=== PATIENT | female | born 1985 | race Caucasian/White ===

== ENCOUNTER → 2021-09-03 15:32 | Outpatient (BNVA) | payer OTHER, SELFPAY | PROVIDERS: PCP Internal Medicine; Visit Provider Physician Assistant ==

== ENCOUNTER → 2021-09-16 09:31 | Outpatient (BNVA) | payer OTHER, SELFPAY | PROVIDERS: PCP Internal Medicine; Visit Provider Physician Assistant Surgical | DX: E66.01 Morbid (severe) obesity due to excess calories (principal); Z68.41 Body mass index [BMI] 40.0-44.9, adult | CPT/HCPCS: 99202 ==

== ENCOUNTER → 2021-09-22 13:30 | Outpatient (BNVA) | payer OTHER, SELFPAY | PROVIDERS: PCP Internal Medicine; Visit Provider Counselor Mental Health | DX: F50.81 Binge eating disorder (principal); F90.2 Attention-deficit hyperactivity disorder, combined type | CPT/HCPCS: 90791 ==

== ENCOUNTER 2021-10-02 14:23 | Outpatient (REF) | payer OTHER, SELFPAY ==
--- NOTE | ~2021-10-02 | XR_ITS ---
EXAMINATION: XR CHEST CLINICAL INFORMATION: Obesity COMPARISON: None TECHNIQUE: 2 views of the chest were obtained. FINDINGS: No significant abnormality is noted involving the heart, lungs, mediastinum, bony thorax or soft tissues. XR/XR chest 2V IMPRESSION: Unremarkable examination.
--- NOTE | 2021-10-02 14:31 | ECG_ITS ---
Test Reason : MORBID OBESITY Blood Pressure : / mmHG Vent. Rate : 081 BPM Atrial Rate : 081 BPM P-R Int : 148 ms QRS Dur : 098 ms QT Int : 382 ms P-R-T Axes : 052 063 044 degrees QTc Int : 443 ms Normal sinus rhythm Normal ECG No previous ECGs available Referred By: Antonio Acosta Electronically Signed By:NATHANIEL HERRERA
[2021-10-02 14:56] LABS: MANUAL DIFF FLAG NO
[2021-10-02 15:06] LABS: Basophils Absolute Auto 0.1 X10*3/uL (0.0-0.2); Basophils Percent Auto 0.7 % (0-2); Eosinophils Absolute Auto 0.5 X10*3/uL (0.0-0.4); Eosinophils Percent Auto 5.1 % (0-4); Hematocrit 39.6 % (37.0-47.0); Imm Gran Abs Auto 0.03 X10*3/uL (0.00-0.03); Imm Gran Pct Auto 0.3 % (0.0-0.4); Lymphocytes Absolute Auto 2.2 X10*3/uL (1.2-4.9); Lymphocytes Percent Auto 23.9 % (20-40); Mean Corpuscular HGB Conc 32.8 g/dl (31.0-35.0); Mean Corpuscular Volume 88.4 fL (80.0-98.0); Mean Platelet Volume 10.3 fL (9.4-12.3); Monocytes Absolute Auto 0.6 X10*3/uL (0.1-1.2); Platelet Count 301 X10*3/uL (160-400); Red Blood Count 4.48 X10*6/uL (4.20-5.50); Red Cell Distribution Width 12.7 % (11.0-16.0); White Blood Count 9.4 X10*3/uL (4.8-10.8)
[2021-10-02 15:13] LABS: Estimated Average Glucose 82 mg/dL; Hemoglobin A1c % 4.5 %
[2021-10-02 15:37] LABS: Alanine Aminotransferase 11 U/L (0-31); Albumin Level 4.1 g/dL (3.5-5.0); Alkaline Phosphatase 72 U/L (39-117); Anion Gap 13 (12-20); Aspartate Amino Transferase 9 U/L (5-31); Bilirubin Total 0.5 mg/dL (0.0-1.0); Blood Urea Nitrogen 11 mg/dL (9-16); C Reactive Protein 0.45 mg/dL (< or = 0.50); Calcium 9.5 mg/dL (8.4-10.2); Carbon Dioxide 22 mmol/L (22-29); Chloride 107 mmol/L (96-108); Cholesterol 158 mg/dL; Estimated Glomerular Filt Rate > 60; Glucose Random 104 mg/dL (60-115); HDL Cholesterol 36 mg/dL; Iron 54 mcg/dL (30-160); LDL Cholesterol Calculated 75 mg/dl; Potassium 3.9 mmol/L (3.3-5.1); Sodium 138 mmol/L (135-145); Total Protein 6.8 g/dL (6.5-8.0); Triglycerides 236 mg/dL
[2021-10-02 15:53] LABS: Ferritin 62 ng/mL (10-122); TSH reflex Free T4 1.25 uIU/mL (0.32-4.0); Vitamin D 25-OH Total 29.8 ng/mL (>30)
[2021-10-02 16:03] LABS: Percent Iron Saturation 17 % (15-50); Total Iron Binding Capacity 315 mcg/dL (228-428); Unsaturated Iron Binding 261 ug/dL
[2021-10-02 16:10] LABS: Folate > 20.0 ng/mL (> or = 4.0); Vitamin B12 675 pg/mL (200-900)
[2021-10-05 16:12] LABS: Calcium (PTHI) 9.5 mg/dL (8.6-10.2); PTHI 26 pg/mL (16-77)
[2021-10-08 09:36] LABS: Zinc 81 mcg/dL (60-130)
[2021-10-08 19:41] LABS: Vitamin A 49 mcg/dL (38-98); Vitamin B1 27 nmol/L (8-30)
== END 2021-10-02 14:24 | disposition home or self-care (01) ==
LOC: HO.XRAY 14:23
PROVIDERS: Visit Provider Physician Assistant Surgical
DX: E66.01 Morbid (severe) obesity due to excess calories (principal)
CPT/HCPCS: 36415; 71046; 80053; 80061; 82306; 82607; 82728; 82746; 83036; 83540; 83970; 84425; 84443; 84590; 84630; 85025; 86140; 93005

== ENCOUNTER → 2021-10-06 09:27 | Outpatient (BNVA) | payer OTHER, SELFPAY | PROVIDERS: PCP Internal Medicine; Visit Provider Physician Assistant Surgical | DX: E66.9 Obesity, unspecified (principal); Z68.39 Body mass index [BMI] 39.0-39.9, adult | CPT/HCPCS: 99212 ==

== ENCOUNTER 2021-10-07 11:38 | Day surgery (SDC) | payer OTHER, SELFPAY ==
--- NOTE | 2021-10-06 10:46 | HO.ANESPROP2 ---
Documented by User: Nika Brewer NP 10/06/21 10:47 HPI - Anesthesia Eval Consult details Narrative: 36yo F for Upper Endoscopy s/p gastric sleeve 2014 [facility] Active Problems Active Problems: All Active Problems (Updated 10/06/21 @ 10:04 by GISELA Storey) Obesity (Acute) Attention deficit hyperactivity disorder (ADHD), combined type (Acute) Binge eating disorder (Acute) Morbid obesity (Acute) HTN (hypertension) (Acute) EVA (obstructive sleep apnea) (Acute) GERD (gastroesophageal reflux disease) (Acute) Family History Family History Mother No problems noted. Father Cancer Sister Diabetes Hypertension Sleep apnea Brother No problems noted. Sister No problems noted. Daughter No problems noted. Daughter No problems noted. Son No problems noted. Surgical History Surgical History History of back surgery History of sleeve gastrectomy Hx of cholecystectomy Social History Social History Alcohol intake: current Alcohol intake frequency: holidays/special occasions only Patient Tobacco Use Status: Current everyday Tobacco user Cigarettes Per Day: 2 Advance Directives: No Advance Directives Information Provided: Yes Meds Allergies Allergy/AdvReac Type Severity Reaction Status Date / Time No Known Allergies Allergy Verified 10/06/21 09:30 Home Medications Medication Instructions Recorded Confirmed Last Taken Type dextroamphetamine-amphetamine ER 15 mg PO DAILY 09/03/21 10/06/21 Unknown History 15 mg 24hr capsule,extend release (Adderall XR) multivitamin 1 tab PO DAILY 09/03/21 10/06/21 Unknown History omeprazole 40 mg capsule,delayed 40 mg PO BID 09/03/21 10/06/21 Unknown History release Exam Exam Date and Time: October 06, 2021 1046 Pertinent Lab Results Pertinent Lab Results: Laboratory Tests 10/02/21 10/02/21 14:54 14:54 WBC 9.4 Hgb 13.0 Hct 39.6 Plt Count 301 Sodium 138 Potassium 3.9 Chloride 107 Carbon Dioxide 22 BUN 11 Creatinine 0.74 Narrative Narrative: EKG Vent. Rate : 081 BPM ? ? Atrial Rate : 081 BPM ?? P-R Int : 148 ms? QRS Dur : 098 ms ? ? QT Int : 382 ms ? ? ? P-R-T Axes : 052 063 044 degrees ?? QTc Int : 443 ms ? Normal sinus rhythm Normal ECG No previous ECGs available Assessment and Plan Assessment Anesthesia Assessment: Chart Reviewed Documented by User: Wai Patel MD 10/07/21 11:47 PMF Family History Family History Mother No problems noted. Father Cancer Sister Diabetes Hypertension Sleep apnea Brother No problems noted. Sister No problems noted. Daughter No problems noted. Daughter No problems noted. Son No problems noted. Family history of problems with anesthesia: No Surgical History Surgical History History of back surgery History of sleeve gastrectomy Hx of cholecystectomy History of Problems with Anesthesia: No Social History Social History Alcohol intake: current Alcohol intake frequency: holidays/special occasions only Patient Tobacco Use Status: Current everyday Tobacco user Cigarettes Per Day: 2 Advance Directives: No Advance Directives Information Provided: Yes Meds Allergies Allergy/AdvReac Type Severity Reaction Status Date / Time No Known Allergies Allergy Verified 10/06/21 09:30 Home Medications Medication Instructions Recorded Confirmed Last Taken Type dextroamphetamine-amphetamine ER 15 mg PO DAILY 09/03/21 10/06/21 Unknown History 15 mg 24hr capsule,extend release (Adderall XR) multivitamin 1 tab PO DAILY 09/03/21 10/06/21 Unknown History omeprazole 40 mg capsule,delayed 40 mg PO BID 09/03/21 10/06/21 Unknown History release Exam Airway Mallampati Class: II TM Dist: >3cm Neck ROM: Full Loose/Missing/Broken Teeth: No Heart: [id number] Lungs: cta b/l Assessment and Plan Assessment Anesthesia Assessment: Anesthesia Plan Discussed Final Anesthetic Review Family History of Problems with Anesthesia: No History of Problems with Anesthesia: No NPO: Yes ASA Class: III Final Preanesthetic Review: No Changes in Pt Med Stat, Meds/Allgs Chart Reviewed, Consent Obtained/Reviewed and Anes Risks/Benef Reviewed Patient Risk: Intermediate Procedure Risk: Intermediate Assessment/Block/Sedation in SS: Assess/Block/Sedation-SS Anesthetic Plan Anesthetic Plan: MAC: and Agree w/ Assess. and Plan Disposition: Standard PACU
[2021-10-07 11:46] VITALS: BMI 38.3
--- NOTE | 2021-10-07 11:56 | P.HPSUR_ITS ---
Pre-Procedural Eval Section A Date of Service: 10/07/21 The patient is an INPATIENT: No The History & Physical has been completed within 30 days and I have reviewed it.: Yes Section B Chief Complaint: reflux disease Relevant Family History (Specify if Yes): No Relevant Social History: None Present Medications: None Medical History: No relevant PMH History of Previous Operations: Relevant previous surgery/procedure and date(s) (Sleeve gastrectomy) Allergies: Allergies Allergy/AdvReac Type Severity Reaction Status Date / Time No Known Allergies Allergy Verified 10/06/21 09:30 Review of Systems Sugical H&P ROS: Negative: Constitution, Cardiovascular, Respiratory, Neurological, Psychiatric, Hem-Onc, Allergic/Immunologic, Gastrointestinal, Genitourinary, Musculoskeletal, Integumentary, Endocrine and Eyes/ Ears/Nose/Throat Exam Surgical H&P Exam: Normal: HEENT, Normal: Heart, Normal: Lungs, Normal: Extremities, Normal: Abdomen, Normal: Skin and Normal: Neurological Plan Diagnosis/Plan: Unchanged (EGD to assess the sleeve gastrectomy anatomy. Risks of bleeding and perforation were discussed) I have reviewed the history and physical and performed a pertinent physical examination on my patient. No changes have occurred unless specified.
[2021-10-07 11:57] LABS: UPreg QC Valid YES; Urine Pregnancy NEGATIVE (NEGATIVE)
[2021-10-07 12:01] VITALS: BP 121/75; PULSE 80; RESP 16; TEMP 36.4; O2SAT 99
[2021-10-07] MEDS: Lactated Ringers 1,000 ML 100 ML IVCONT (12:02)
--- NOTE | 2021-10-07 12:05 | PM.OP ---
Brief Operative Note Date of Service: 10/07/21 Pre-op diagnosis: Severe GERD, s/p sleeve gastrectomy Post-op diagnosis: same Procedure: PROCEDURE DATE: 10/07/2021 PREOPERATIVE DIAGNOSIS: GERD, s/p sleeve gastrectomy POSTOPERATIVE DIAGNOSIS: ?Same as above. 1) small hiatal hernia, 2) distal gastritis, 3) incomplete fundal resection PROCEDURE: [id number] with biopsies Surgeon: ?Vince Christine M.D.. Ph.D. Puttying And Calking Supervisor: None ? Anesthesia: IV sedation Estimated blood loss: ?Minimal FINDINGS AND PROCEDURE: ? OPERATIVE INDICATIONS: ?The patient is a 36 year old female known to me who underwent a laparoscopic sleeve gastrectomy elsewhere. The patient had remarkable weight loss so far and had a completely uneventful recovery.? The patient was doing very well but has recently been complaining of GERD. Based on this information I recommended an upper endoscopy to evaluate the patient's symptoms. Risks and complications of the surgery were discussed with the patient in advance particularly the possibility of perforation or bleeding that may require surgical intervention. The patient understood the risks and was in agreement with the plan. ? PROCEDURE: After informed consent was obtained by the patient, the patient was ?transferred to the Operating Room and was placed in the supine position.? After successful induction of IV sedation, a mouth block was inserted and the patient was placed in the left lateral decubitus position. An upper endoscopy was performed next, the oropharynx and esophagus appeared within the normal limits. There was a 3cm hiatal hernia. The z-line was slighlty irregular. Two biopsies were obtained from the distal esohagus 2-3 cm proximal to the GE junction and two additional biopsies from the GE junction. The sleeve was entered. There was significant redundancy in the proximal sleeve suggesting incomplete fundal resection at the time of sleeve gastrectomy. The more distal sleeve was of normal caliber but the sleeve was short as well in length. There was mild gastritis at distal antrum. There was no stricture or ulcer. Biopsies were obtained from the proximal sleeve as well as the distal antrum. No significant bleeding was noted from any of the biopsy sites. The scope was then advanced into the duodenum which appeared to be normal as well. At that point the duodenum ?and the sleeve were decompressed and the scope was withdrawn from the patient's mouth. The patient extubated and was transferred in stable condition to the Recovery Room for further care. I was present and performed all steps of the procedure. There were no residents to assist with this case. Vince Christine M.D., Ph.D. Surgeon: Eyal Christine MD Anesthesia: MAC Was an Puttying And Calking Supervisor used for this Procedure?: No Estimated blood loss (mL): 0 IV fluids (mL): 300 Urine output (mL): 0 Pathology: other (GEJ x2, distal esophagus x2, proximal sleeve x1, prepylorus x1) Condition: stable Disposition: PACU
[2021-10-07 12:32] VITALS: BP 113/71; PULSE 101; RESP 12; TEMP 36.2; O2SAT 98
[2021-10-07 12:37] VITALS: BP 141/78; PULSE 91; RESP 14; O2SAT 100
[2021-10-07 12:42] VITALS: BP 141/78; PULSE 84; RESP 16; O2SAT 100
[2021-10-07 12:54] VITALS: BP 121/76; PULSE 92; RESP 16; TEMP 36.2; O2SAT 100
== END 2021-10-07 13:21 ==
LOC: HO.SSS 11:39
PROVIDERS: Nurse Practitioner; PCP Internal Medicine; Visit Provider Surgery
PROC: 0DJ08ZZ Inspection of Upper Intestinal Tract, Via Natural or Artificial Opening Endoscopic (ICD-10-PCS; CPT 43235; principal; 2021-10-07 12:40)
DX: K21.9 Gastro-esophageal reflux disease without esophagitis (principal); Z98.84 Bariatric surgery status; Z90.3 Acquired absence of stomach [part of]; K29.50 Unspecified chronic gastritis without bleeding; K44.9 Diaphragmatic hernia without obstruction or gangrene; E66.01 Morbid (severe) obesity due to excess calories; Z68.41 Body mass index [BMI] 40.0-44.9, adult; Z90.49 Acquired absence of other specified parts of digestive tract; Z98.890 Other specified postprocedural states; F17.210 Nicotine dependence, cigarettes, uncomplicated
CPT/HCPCS: 43239; 81025; 88305; 88342; J2250

== ENCOUNTER → 2021-10-21 08:12 | Outpatient (BNVA) | payer OTHER, SELFPAY | PROVIDERS: PCP Internal Medicine; Visit Provider Dietitian, Registered | DX: E66.9 Obesity, unspecified (principal); Z68.37 Body mass index [BMI] 37.0-37.9, adult | CPT/HCPCS: 97802 ==

== ENCOUNTER 2021-10-26 08:39 | Outpatient (REF) | payer OTHER, SELFPAY ==
--- NOTE | ~2021-10-26 | US_ITS ---
EXAMINATION: US COMPLETE ABDOMEN WITH LIVER ELASTOGRAPHY CLINICAL INFORMATION: Obesity COMPARISON: None. TECHNIQUE: Real-time imaging of the abdominal viscera. Noninvasive ultrasound liver fibrosis assessment is performed using Zeke ElastPQ point quantification shear wave elastography (2D-SWE) with a C5-2 MHz transducer. Multiple elastography samples are obtained. FINDINGS: PANCREAS: The head and body the pancreas is normal-appearing. The tail is not well visualized due to bowel gas. ABDOMINAL AORTA: The proximal, middle, and distal aortic segments are normal in caliber. INFERIOR VENA CAVA: Visualized portions are normal. LIVER: Normal. The liver demonstrates normal size, contour and echogenicity. No focal lesion or intrahepatic biliary duct dilatation. The right lobe measures 15 cm in length. The left lobe measures 8 cm in length. Portal flow is normal/hepatopedal Shear wave liver elastography median stiffness is 1.4 m/s (reference: normal median stiffness is 1.3 m/s or less). IQR/median stiffness to assess sampling precision is 0.1 (reference: good quality data set is IQR/median stiffness of 0.15 or less). GALLBLADDER: Surgically removed COMMON BILE DUCT: Normal in caliber measuring 0.3 cm in diameter. RIGHT KIDNEY: Normal. No hydronephrosis. No renal calculi or focal parenchymal lesions. The kidney measures 12 cm in maximum dimension. LEFT KIDNEY: Normal. No hydronephrosis. No renal calculi or focal parenchymal lesions. The kidney measures 12 cm in maximum dimension. SPLEEN: Slightly enlarged The spleen measures 14 cm in maximum dimension. FREE FLUID: None. US/US abdomen comp w elastography IMPRESSION: 1. Impression: Normal-appearing liver. Post cholecystectomy. Slightly enlarged spleen. Limited visualization of the pancreas. 2. Liver elastography: Adequate liver sampling. In the absence of other known clinical signs, rules out compensated advanced chronic liver disease. REFERENCE: Society of Radiologists in Ultrasound Liver Stiffness Thresholds (2020): LIVER STIFFNESS THRESHOLDS: *Liver Stiffness equal or less than 1.3 m/s: High probability of being normal. *Liver Stiffness less than 1.7 m/s: In the absence of other known clinical signs, rules out compensated advanced chronic liver disease. *Liver Stiffness 1.7-2.1 m/s: Suggestive of compensated advanced chronic liver disease but need further test for confirmation. *Liver Stiffness over 2.1 m/s: Rules in compensated advanced chronic liver disease. *Liver Stiffness over 2.4 m/s: Suggestive of clinically significant portal hypertension. QUALITY OF DATA SET: *IQR/Median value equal or less than 0.15 implies a quality data set. *IQR/Median value over 0.15 implies a poor quality data set. SIGNIFICANT CHANGE FROM PRIOR EXAM: Significant change if liver stiffness measurement is 10% or greater from prior exam. OTHER CONSIDERATIONS: The stage of liver fibrosis may be overestimated in the setting of acute hepatitis, liver inflammation, elevated liver function tests, hepatic vascular congestion, obstructive cholestasis, non-fasting state, and infiltrative diseases such as amyloidosis and lymphoma. In some patients with NAFLD, the liver stiffness thresholds for compensated advanced chronic liver disease may be lower. In causes other than viral hepatitis and NAFLD, liver stiffness thresholds are not well established.
--- NOTE | ~2021-10-26 | FL_ITS ---
EXAMINATION: XR FLUOROSCOPY UPPER GI WITH AIR CLINICAL INFORMATION: Morbid/severe obesity due to excess calories. Previous gastric sleeve surgery. COMPARISON: None. TECHNIQUE: Routine upper GI air-contrast study was performed. FINDINGS: Following oral administration of thick barium and effervescent granules, there is normal propagation of bolus from the oral cavity through the pharynx and esophagus and into the stomach without any evidence of obstruction, narrowing or stricture. Following placing patient supine and prone lying, there is evidence of previous gastric sleeve surgery. The course, caliber and peristalsis of the stomach and the duodenum are normal. The mucosal pattern of the stomach and the duodenum is normal. There is a large gastroesophageal reflux without hiatal hernia. There is evidence of previous cholecystectomy. FLUOROSCOPY TIME: 1.2 minutes DOSE AREA PRODUCT: 25.64 uGy-m2 (microgray-meter squared) FL/FL upper GI w air IMPRESSION: Large gastroesophageal reflux without hiatal hernia. Evidence of previous gastric sleeve surgery changes.
== END 2021-10-26 08:40 | disposition home or self-care (01) ==
LOC: HO.US 08:39
PROVIDERS: PCP Internal Medicine; Visit Provider Physician Assistant Surgical
DX: Z01.818 Encounter for other preprocedural examination (principal); E66.01 Morbid (severe) obesity due to excess calories
CPT/HCPCS: 74246; 76705; 76981

== ENCOUNTER → 2021-11-05 10:23 | Outpatient (BNVA) | payer OTHER, SELFPAY | PROVIDERS: PCP Internal Medicine; Visit Provider Surgery | DX: Z13.89 Encounter for screening for other disorder (principal) ==

== ENCOUNTER → 2021-11-25 10:34 | Outpatient (BNVA) | payer OTHER, SELFPAY | PROVIDERS: PCP Internal Medicine; Visit Provider Surgery | DX: Z13.89 Encounter for screening for other disorder (principal) ==

== ENCOUNTER → 2021-11-27 12:53 | Outpatient (BNVA) | payer OTHER, SELFPAY | PROVIDERS: PCP Internal Medicine; Visit Provider Surgery | DX: Z13.89 Encounter for screening for other disorder (principal) ==

== ENCOUNTER 2021-12-02 06:03 | Inpatient (IN) | payer OTHER, SELFPAY ==
[2021-11-24 13:07] VITALS: BMI 35.9
[2021-11-27 12:51] LABS: MANUAL DIFF FLAG NO
[2021-11-27 13:05] LABS: Basophils Absolute Auto 0.1 X10*3/uL (0.0-0.2); Basophils Percent Auto 0.8 % (0-2); Eosinophils Absolute Auto 0.2 X10*3/uL (0.0-0.4); Eosinophils Percent Auto 2.1 % (0-4); Hematocrit 40.4 % (37.0-47.0); Hemoglobin 13.3 g/dl (12.0-16.0); Imm Gran Abs Auto 0.03 X10*3/uL (0.00-0.03); Imm Gran Pct Auto 0.3 % (0.0-0.4); Lymphocytes Absolute Auto 2.2 X10*3/uL (1.2-4.9); Lymphocytes Percent Auto 22.5 % (20-40); Mean Corpuscular HGB Conc 32.9 g/dl (31.0-35.0); Mean Corpuscular Hemoglobin 29.5 pg (27.0-33.0); Mean Corpuscular Volume 89.6 fL (80.0-98.0); Mean Platelet Volume 10.5 fL (9.4-12.3); Monocytes Absolute Auto 0.6 X10*3/uL (0.1-1.2); Monocytes Percent Auto 5.9 % (2-11); Neutrophils Absolute Auto 6.6 x10*3/uL (2.0-8.3); Neutrophils Percent Auto 68.4 % (45-73); Platelet Count 300 X10*3/uL (160-400); Red Blood Count 4.51 X10*6/uL (4.20-5.50); Red Cell Distribution Width 12.6 % (11.0-16.0); White Blood Count 9.7 X10*3/uL (4.8-10.8)
[2021-11-27 13:10] LABS: INTERNATIONAL NORM RATIO 1.1 (0.9-1.1); Prothrombin Time 12.7 SEC (9.9-13.0)
[2021-11-27 13:12] LABS: Partial Thromboplastin Time 37.2 SEC (24.1-38.0)
[2021-11-27 13:17] LABS: Estimated Average Glucose 85 mg/dL; Hemoglobin A1c % 4.6 %
[2021-11-27 13:24] LABS: Alanine Aminotransferase 13 U/L (0-31); Albumin Level 4.4 g/dL (3.5-5.0); Alkaline Phosphatase 68 U/L (39-117); Anion Gap 14 (12-20); Aspartate Amino Transferase 11 U/L (5-31); Bilirubin Total 0.7 mg/dL (0.0-1.0); Blood Urea Nitrogen 11 mg/dL (9-16); C Reactive Protein 0.52 mg/dL (< or = 0.50); Calcium 9.7 mg/dL (8.4-10.2); Carbon Dioxide 24 mmol/L (22-29); Chloride 104 mmol/L (96-108); Cholesterol 180 mg/dL; Creatinine Clr Calc Pharmacy 133.3; Estimated Glomerular Filt Rate > 60; Glucose Random 88 mg/dL (60-115); HDL Cholesterol 38 mg/dL; LDL Cholesterol Calculated 123 mg/dl; Potassium 4.1 mmol/L (3.3-5.1); Sodium 138 mmol/L (135-145); Total Protein 7.2 g/dL (6.5-8.0); Triglycerides 97 mg/dL
[2021-11-27 13:46] LABS: Insulin 9 uU/mL (2-29); TSH reflex Free T4 0.92 uIU/mL (0.32-4.0)
--- NOTE | 2021-11-28 17:40 | P.HPSUR_ITS ---
Pre-Procedural Eval Section A Date of Service: 11/28/21 The patient is an INPATIENT: Yes The History & Physical has been completed within 30 days and I have reviewed it.: Yes Section B Chief Complaint: obesity Relevant Family History (Specify if Yes): No Relevant Social History: None Present Medications: None Medical History: No relevant PMH History of Previous Operations: Relevant previous surgery/procedure and date(s) (sleeve gastrectomy) Allergies: Allergies Allergy/AdvReac Type Severity Reaction Status Date / Time No Known Allergies Allergy Verified 11/25/21 11:57 Review of Systems Sugical H&P ROS: Negative: Constitution, Cardiovascular, Respiratory, Neurological, Psychiatric, Hem-Onc, Allergic/Immunologic, Gastrointestinal, Genitourinary, Musculoskeletal, Integumentary, Endocrine and Eyes/Ears/N ose/Throat Exam Surgical H&P Exam: Normal: HEENT, Normal: Heart, Normal: Lungs, Normal: Extremities, Normal: Abdomen, Normal: Skin and Normal: Neurological Plan Diagnosis/Plan: Unchanged I have reviewed the history and physical and performed a pertinent physical examination on my patient. No changes have occurred unless specified.
--- NOTE | 2021-12-01 09:58 | HO.ANESPROP2 ---
Documented by User: Nika Brewer NP 12/01/21 09:59 HPI - Anesthesia Eval Consult details Narrative: 36yo F for Revision Gastrectomy Sleeve to a sleeve,poss gastric bypass s/p gastric sleeve 2014 [facility] Active Problems Active Problems: All Active Problems (Updated 11/25/21 @ 12:07 by Eyal Christine MD) BMI 36.0-36.9,adult (Acute) GERD (gastroesophageal reflux disease) (Acute) EVA (obstructive sleep apnea) (Acute) HTN (hypertension) (Acute) Morbid obesity (Acute) Binge eating disorder (Acute) Attention deficit hyperactivity disorder (ADHD), combined type (Acute) Obesity (Acute) BMI 37.0-37.9, adult (Acute) Past Medical History Medical History (Updated 12/02/21 @ 15:58 by Eyal Christine MD) Attention deficit disorder (ADD) COVID-19 COVID-19 vaccine series completed Depression hemorrhage Seasonal allergies Family History Family History Mother No problems noted. Father Cancer Sister Diabetes Hypertension Sleep apnea Brother No problems noted. Sister No problems noted. Daughter No problems noted. Daughter No problems noted. Son No problems noted. Family history of problems with anesthesia: No Surgical History Surgical History (Updated 12/02/21 @ 15:58 by Eyal Christine MD) History of back surgery History of sleeve gastrectomy Hx of cholecystectomy History of Problems with Anesthesia: No Social History Social History Household Members: Significant Other and Family Housing: House Are you a primary urgent care nurse practitioner to a significant other at home: No Do you presently have visiting nurse or other home services: No Alcohol intake: current Alcohol intake frequency: holidays/special occasions only Patient Tobacco Use Status: Former Tobacco user Quit Date: 10/27/21 Tobacco use type: Cigarette Cigarettes Per Day: 2 Use of substances other than those prescribed or required for medical reasons: No Have you been hit, kicked, punched, or otherwise hurt by someone within the past year? If so, by whom?: No Do you feel safe in your current relationship?: Yes Is there a partner from a previous relationship who is making you feel unsafe now?: No Are you made to feel afraid or neglected: No Are you DNR?: No Advance Directives: No Advance Directives Information Provided: Yes (brochure mailed) Advance Directives on File: No Do you have thoughts of harming others: None Do you have a plan to hurt others: No Plan Recently lost weight without trying: No Eating poorly because of decreased appetite: No Nutrition Risks: No Nutritional Risk Patient : No FDLMP: 11/16/21 : No Poor oral hygiene: No Meds Allergies Allergy/AdvReac Type Severity Reaction Status Date / Time No Known Allergies Allergy Verified 12/02/21 06:14 Home Medications Medication Instructions Recorded Confirmed Last Taken Type dextroamphetamine-amphetamine ER 15 mg PO DAILY 09/03/21 11/25/21 Unknown History 15 mg 24hr capsule,extend release (Adderall XR) multivitamin 1 tab PO DAILY 09/03/21 11/25/21 Unknown History omeprazole 40 mg capsule,delayed 40 mg PO BID 09/03/21 11/25/21 10/07/21 History release dextroamphetamine-amphetamine 10 1 tab PO DAILY 12/02/21 12/02/21 Unknown History mg tablet Exam Exam Date and Time: December 01, 2021 0958 Height,Weight and Vital Signs: Height 5 ft 7 in Weight 103.873 kg Pertinent Lab Results Pertinent Lab Results: Laboratory Tests 11/27/21 11/27/21 11/27/21 12:42 12:49 12:49 WBC 9.7 RBC 4.51 Hgb 13.3 Hct 40.4 MCV 89.6 MCH 29.5 MCHC 32.9 RDW 12.6 Plt Count 300 MPV 10.5 Immature Gran % (Auto) 0.3 Neut % (Auto) 68.4 Lymph % (Auto) 22.5 [place] % (Auto) 5.9 Eos % (Auto) 2.1 Baso % (Auto) 0.8 Lymph # (Auto) 2.2 [place] # (Auto) 0.6 Eos # (Auto) 0.2 Baso # (Auto) 0.1 Abs Immat Gran (auto) 0.03 Absolute Neuts (auto) 6.6 Absolute Nucleated RBC 0.000 Nucleated RBC % (auto) 0.0 PT 12.7 INR 1.1 APTT 37.2 Sodium Potassium Chloride Carbon Dioxide Anion Gap BUN Creatinine Estim Creat Clear Calc Estimated GFR Random Glucose Estimat Average Glucose Hemoglobin A1c % Insulin Level Calcium Total Bilirubin AST ALT Alkaline Phosphatase C-Reactive Protein Total Protein Albumin Triglycerides Cholesterol LDL Cholesterol, Calc HDL Cholesterol TSH Blood Type O Positive Antibody Screen NEGATIVE 11/27/21 11/27/21 12:49 12:49 WBC RBC Hgb Hct MCV MCH MCHC RDW Plt Count MPV Immature Gran % (Auto) Neut % (Auto) Lymph % (Auto) [place] % (Auto) Eos % (Auto) Baso % (Auto) Lymph # (Auto) [place] # (Auto) Eos # (Auto) Baso # (Auto) Abs Immat Gran (auto) Absolute Neuts (auto) Absolute Nucleated RBC Nucleated RBC % (auto) PT INR APTT Sodium 138 Potassium 4.1 Chloride 104 Carbon Dioxide 24 Anion Gap 14 BUN 11 Creatinine 0.73 Estim Creat Clear Calc 133.3 Estimated GFR > 60 Random Glucose 88 Estimat Average Glucose 85 Hemoglobin A1c % 4.6 Insulin Level 9 Calcium 9.7 Total Bilirubin 0.7 AST 11 ALT 13 Alkaline Phosphatase 68 C-Reactive Protein 0.52 H Total Protein 7.2 Albumin 4.4 Triglycerides 97 Cholesterol 180 LDL Cholesterol, Calc 123 HDL Cholesterol 38 TSH 0.92 Blood Type Antibody Screen Narrative Narrative: EKG 09/2021 Vent. Rate : 081 BPM ? ? Atrial Rate : 081 BPM ?? P-R Int : 148 ms? QRS Dur : 098 ms ? ? QT Int : 382 ms ? ? ? P-R-T Axes : 052 063 044 degrees ?? QTc Int : 443 ms ? Normal sinus rhythm Normal ECG No previous ECGs available Assessment and Plan Assessment Anesthesia Assessment: Chart Reviewed Final Anesthetic Review Family History of Problems with Anesthesia: No History of Problems with Anesthesia: No Documented by User: Alfred Lamb MD 12/02/21 17:48 [facility] Past Medical History Medical History (Updated 12/02/21 @ 15:58 by Eyal Christine MD) Attention deficit disorder (ADD) COVID-19 COVID-19 vaccine series completed Depression hemorrhage Seasonal allergies Family History Family History Mother No problems noted. Father Cancer Sister Diabetes Hypertension Sleep apnea Brother No problems noted. Sister No problems noted. Daughter No problems noted. Daughter No problems noted. Son No problems noted. Surgical History Surgical History (Updated 12/02/21 @ 15:58 by Eyal Christine MD) History of back surgery History of sleeve gastrectomy Hx of cholecystectomy Social History Social History Household Members: Significant Other and Family Housing: House Are you a primary urgent care nurse practitioner to a significant other at home: No Do you presently have visiting nurse or other home services: No Alcohol intake: current Alcohol intake frequency: holidays/special occasions only Patient Tobacco Use Status: Former Tobacco user Quit Date: 10/27/21 Tobacco use type: Cigarette Cigarettes Per Day: 2 Use of substances other than those prescribed or required for medical reasons: No Have you been hit, kicked, punched, or otherwise hurt by someone within the past year? If so, by whom?: No Do you feel safe in your current relationship?: Yes Is there a partner from a previous relationship who is making you feel unsafe now?: No Are you made to feel afraid or neglected: No Are you DNR?: No Advance Directives: No Advance Directives Information Provided: Yes (brochure mailed) Advance Directives on File: No Do you have thoughts of harming others: None Do you have a plan to hurt others: No Plan Recently lost weight without trying: No Eating poorly because of decreased appetite: No Nutrition Risks: No Nutritional Risk Patient : No FDLMP: 11/16/21 : No Poor oral hygiene: No Meds Allergies Allergy/AdvReac Type Severity Reaction Status Date / Time No Known Allergies Allergy Verified 12/02/21 06:14 Home Medications Medication Instructions Recorded Confirmed Last Taken Type dextroamphetamine-amphetamine ER 15 mg PO DAILY 09/03/21 11/25/21 Unknown History 15 mg 24hr capsule,extend release (Adderall XR) multivitamin 1 tab PO DAILY 09/03/21 11/25/21 Unknown History omeprazole 40 mg capsule,delayed 40 mg PO BID 09/03/21 11/25/21 10/07/21 History release dextroamphetamine-amphetamine 10 1 tab PO DAILY 12/02/21 12/02/21 Unknown History mg tablet Exam Airway Mallampati Class: III TM Dist: >3cm Neck ROM: Full Loose/Missing/Broken Teeth: Yes (Chipped teeth ) Heart: S1, S2 Lungs: b/l breath sounds Assessment and Plan Assessment Anesthesia Assessment: Anesthesia Plan Discussed Final Anesthetic Review NPO: Yes ASA Class: III Final Preanesthetic Review: Meds/Allgs Chart Reviewed, Consent Obtained/Reviewed and Anes Risks/Benef Reviewed Patient Risk: Intermediate Procedure Risk: Intermediate Anesthetic Plan Anesthetic Plan: GA Disposition: Inp. Admit - Standard Bed
[2021-12-01 13:58] LABS: COVID-19 Test Negative (Negative)
[2021-12-02] VITALS (16 sets, daily range): BP systolic 118–158; BP diastolic 66–110; PULSE 66–93; RESP 13–18; TEMP 36.2–37.4; O2SAT 94–100
[2021-12-02 06:24] LABS: UPreg QC Valid YES; Urine Pregnancy NEGATIVE (NEGATIVE)
[2021-12-02] MEDS: Lactated Ringers 1,000 ML 100 ML IVCONT ×3 (06:51→21:17)
[2021-12-02] MEDS: Lactated Ringers 1,000 ML 999 ML IV (06:52)
--- NOTE | 2021-12-02 09:23 | PHA.MEDREC ---
Pharmacy Consult ? Medication Reconciliation Pharmacy has completed the medication reconciliation.
--- NOTE | 2021-12-02 11:20 | P.DS_ITS ---
DS: Providers Provider Date of Service: 12/03/21 Date of admission: 12/02/21 06:03 Primary care physician: Pawan Roth MD DS: Summary Hospital Course Hospital Course: ADMITTING DIAGNOSIS: morbid obesity, ADD, depression ? DISCHARGE DIAGNOSIS: same, s/p revision of laparoscopic sleeve gastrectomy and repair diaphragmatic hernia ? PAST SURGICAL HISTORY: laparoscopic sleeve gastrectomy, cholecystectomy ? PROCEDURE: upper endoscopy, laparoscopic sleeve gastrectomy and repair of diaphragmatic hernia hernia ? DISCHARGE SUMMARY: ? History of Present Illness: ? The patient is a?36 year-old woman with a BMI of?41.3 kg/m2 and associated co- morbidities as described above. The patient had extensive work-up,lost?26.3 lbs preoperatively and was electively scheduled for laparoscopic, possible open revision of sleeve gastrectomy and gastropexy. Risks and complications of the surgery were discussed with the patient in advance, particularly the possibility of , pulmonary embolism, anastomotic leak, bleeding, bowel injury, GERD, cardiac, renal or pulmonary complications. The patient understood all the risks and was in agreement with the surgical plan. ? Hospital Course: ? The patient underwent an uneventful laparoscopic sleeve gastrectomy with gastropexy and repair of diaphragmatic hernia on the day of admission. Postoperatively, the patient was transferred to the surgical floor. The patient received IV Acetaminophen and IV dilaudid for pain control. Patient was started on bariatric phase 1 diet POD #0. On postoperative day one, the patient was feeling well without nausea, vomiting, fevers, or tachycardia. The patient had some mild incisional pain and the abdomen was soft. ? On the morning of postoperative day one, the patient was continued on 1 ounce of water or ice every half hour. During the day, the patient did fairly well, having some incisional pain, but able to ambulate adequately and to tolerate liquids well. ? Since the patient is doing well, we decided that the patient was ready to be discharged. The patient was given instructions to follow-up with me next week and to call my office for any fever over 101, persistent abdominal pain, nausea, vomiting, GERD, symptoms of DVT such as calf tenderness, or leg swelling, or pulmonary embolism such as chest pain or shortness of breath. The patient was also instructed to drink 40-60 ounces of liquids per day using the 1-ounce cups. The patient had been given prescriptions for Tylenol for pain, Zofran prn for nausea, and pantoprazole and carafate previously. The patient was encouraged to ambulate and use the incentive spirometer. The patient was allowed to shower, but no baths, and encouraged to stay active at home. All of these instructions were given to the patient personally. All questions were answered and the patient understood all instructions, the instructions were also given to the patient in print. Time Spent with Patient Time attestation: Total time spent providing and/or coordinating discharge services: Discharge coordination time: Less than 30 minutes Quality: Safe Use of Opioids Does Pt have an Active Cancer Diagnosis on the Problem List?: No Quality: Stroke Does the patient have a stroke diagnosis?: No Physical Exam Vital Signs: Vital Signs: Last Vital Signs Temp 98.0 F 12/02/21 06:15 Pulse 77 12/02/21 06:15 Resp 15 12/02/21 06:15 BP 118/66 12/02/21 06:15 Pulse Ox 98 12/02/21 06:15 BMI result Body Mass Index 35.9 DS: Data Data Completed and Pending Pending studies at discharge: Pending at discharge 12/02/21 10:49 Surgical [PTH] Routine Labs on day of discharge: Laboratory Results - last 24 hr 12/01/21 12/02/21 13:33 06:10 Urine Test NEGATIVE COVID-19 ([facility]) Negative COVID-19 Clin Com See Note Discharge Plan Discharge Patient Disposition: Home, Self-Care Discharge Diagnosis: s/p revision laparoscopic sleeve gastrectomy with diaphragmatic hernia repair Referrals: Pawan Roth MD [Primary Care Provider] - 1 Week Discharge Medications: Continued pantoprazole 40 mg tablet,delayed release (DR/EC) 40 mg PO DAILY Qty: 30 2RF sucralfate 100 mg/mL suspension 10 ml PO BID Qty: 400 2RF ondansetron HCl 4 mg tablet 4 mg PO Q12H Qty: 20 0RF dextroamphetamine-amphetamine [Adderall XR] 15 mg capsule,extended release 24hr 15 mg PO DAILY 0RF Discontinued dextroamphetamine-amphetamine 10 mg tablet 1 tab PO DAILY 0RF polyethylene glycol 3350 [Miralax] 17 gram powder in packet 17 g PO DAILY Qty: 14 0RF Rx Instructions: Mix each packet with 8oz of water and do 7 packets on 11/30/21 and another 7 packets on 12/01/21 multivitamin Tablet 1 tab PO DAILY 0RF omeprazole 40 mg capsule,delayed release(DR/EC) 40 mg PO BID 0RF Discharge Orders: Discharge Order (Routine); Ordered 12/03/21 Ordered By: Eyal Christine Diet: other Activity on Discharge: No heavy lifting Stand Alone Forms: Patient Portal Discharge page Care Plan Goals: weight loss Health Concerns: morbid obesity, GERD Plan of Treatment: No tub baths, sex or returning to work until discussed at first post op appointment. No exercise, alcohol, tobacco or illegal drug use. Continue to use incentive spirometer hourly while awake. Walk in home for 5- 10 minutes every 2 hours during the first week. Follow all instructions in the bariatric handbook and call with any questions.Discharge Instructions 1. Please call your doctor or come back to the emergency room should any new symptoms arise. 2. You will receive a courtesy call from [facility] 24-48 hours after discharge. 3. Activity: abstain from alcohol, practice limited stair climbing, no bending, no driving, no exercise, no illicit substances, no lifting, no sex, no tub bath, no work. 4. Diet: continue as discussed with Dr. Christine. 5. Dressing Change/Wound Care: Your incision is covered by clear bandages and guaze underneath. If the area is tender, you may apply an ice pack for short intervals (no more than 20 minutes on, followed by at least 20 minutes off). Do not apply heat. Do not use creams, lotions, or topical antibiotics unless instructed to do so by your surgeon. These can cause infection or allergic reaction. 6. Call your doctor if: - Your temperature exceeds 101.5 F - You experience excessive pain or swelling - You have an unexpected reaction to medication - You have excessive bleeding - You experience continued vomiting/nausea - Your incision begins to separate - Your incision shows signs of infection such as increased redness, swelling, excessive pain, heat, or drainage (light blood or clear fluid is normal) 7. General instructions: No lifting greater than 5 lbs for the next 4 weeks[address] driving within 24 hours of taking narcotic pain medications. If you do not move your bowels in the next 2 days, please take milk of magnesia over the counter. Please follow the post op diet and do not advance your diet until you are seen in the office in about 2 weeks. Please walk around your home every hour or two to prevent blood clots from forming in your legs. You do not need to wake from sleeping to walk. Please sleep in a bed or couch to prevent kinking at the hips and knees. Please take your incentive spirometer (your lung wire basket maker) home with you and use it for the next few days to prevent pneumonias. You may shower, no hot tubs, baths or swimming pools. Please call the office with any questions or concerns such as increasing abdominal pain, fever, chills, shortness of breath, chest pain, leg pain or swelling, or redness or drainage from your incisions. Please stay on stage 3 diet which includes sugar free clear liquids such as ice pops and jello and broth and crystal light. Avoid all carbonation. Please drink 3 protein shakes with at least 25-30 grams of protein daily or 3 of the Celebrate 4:1 shakes which can be purchased in our office. The Celebrate shakes have all of the bariatric vitamins you need if you consume these shakes. If you are drinking other protein shakes, you will need to purchase the Celebrate multivitamins and calcium that we provide in the office (they will provide all the vitamins you need). Please make sure you are consuming at least 40-60 ounces of water in addition to your 3 protein shakes daily. Do not hesitate to contact the office with any questions at . The patient's medical history has been reviewed and they are considered low risk for post op DVT and therefore DVT prophylaxis is not considered necessary. Travel after surgery was reviewed. The patient has not disclosed any travel plans during the first 30 days after surgery and they have been advised that within the first 30 days after surgery any bus, plane, train or car travel over 2 hours in duration is contraindicated due to the possibility of developing blood clots from immobility. Any travel, needs to include periods of ambulation of 10 minutes in duration every 2 hours.? The patient was instructed to discuss any plans for travel during this period with their bariatric surgeon. Assessment: stable s/p laparoscopic revision of sleeve gastrectomy and diaphragmatic hernia repair Discharge Date/Time: 12/03/21 11:30
[2021-12-02] MEDS: HYDROmorphone HCl 0.5 MG/0.5 ML SYRINGE 0.25 MG IVPUSH ×4 (11:48→12:14)
[2021-12-02 12:10] LABS: Hematocrit 40.6 % (37.0-47.0); Hemoglobin 13.1 g/dl (12.0-16.0)
[2021-12-02 12:36] LABS: Anion Gap 14 (12-20); Blood Urea Nitrogen 9 mg/dL (9-16); Calcium 8.7 mg/dL (8.4-10.2); Carbon Dioxide 23 mmol/L (22-29); Chloride 104 mmol/L (96-108); Creatinine Clr Calc Pharmacy 121.6; Estimated Glomerular Filt Rate > 60; Glucose Random 119 mg/dL (60-115); Potassium 4.2 mmol/L (3.3-5.1); Sodium 137 mmol/L (135-145)
[2021-12-02] MEDS: ondansetron HCL 4 MG/2 ML VIAL IVPUSH ×2 (13:02→21:11)
[2021-12-02] MEDS: ceFAZolin Sodium/Dextrose,Iso 2 GM/50 ML PIGGYBACK IV (13:53)
--- NOTE | 2021-12-02 15:50 | PM.OP ---
Brief Operative Note Date of Service: 12/02/21 Pre-op diagnosis: Severe obesity with comorbidities (see below) Post-op diagnosis: same (1) diaphragmatic hernia, 2) extensive abdominal adhesions) Procedure: [address] [address] Brief Operative Note Signed Patient: July Vazquez MR#: [id number] : 02/15/1973 Acct:[id number] Age/Sex: 48 / F Loc: [facility] 363-1 ?? ? Attending Dr: Eyal Christine MD cc: ~ Brief Operative Note Date of Service: 11/12/21 Pre-op diagnosis: Severe obesity with comorbidities (see below) Post-op diagnosis: same Procedure: INITIAL PATIENT BMI ON PRESENTATION AT OUR OFFICE: 41.3 kg/m2 LAST BMI BEFORE SURGERY: 36.7 kg/m2 COMORBIDITIES: ADHD, GERD, diaphragmatic hernia, back pain ?The patient presented to the Weight Management Program with significant obesity that was negatively impacting the patient's comorbidities as listed above.? The program is a phased program with a special focus on preoperative medical weight management to promote substantial weight loss and prepare the patients for the second phase of the program: bariatric surgery. The patient participated in an intensive weekly lifestyle ?intervention and exercise program during which the patient ?has lost between the initial office visit and the last preoperative visit 27.5lbs, or 10.75% of initial actual body weight. It was deemed appropriate for the patient to now have bariatric surgery. In light of the current Covid-19 pandemic and the well documented strong association of obesity and increased risk of worse outcomes if infected with Covid-19 (REFERENCES:https://pubmed.ncbi.nlm.nih.gov/08893565/,?https://pubmed.ncbi.nlm.nih.gov/39244228/), any delay in undergoing bariatric surgery may lead to the patient's worsening health condition and increased?risk of more severe Covid-19 disease if infected. In addition a recent?study from [facility] published in [employer] on 07/13/2021 ([email or web address]:/[email or web address]) found that, among patients with obesity, substantial weight loss achieved with surgery was associated with improved outcomes of COVID-19 infection. The findings suggest that obesity can be a modifiable risk factor for the severity of COVID-19 infection. In addition, the patient met the BMI-criteria for bariatric surgery based on the BMI on initial presentation. The patient should not be penalized for achieving such weight loss because ?it is not sustainable long-term without surgical intervention and it was achieved in preparation for bariatric surgery ?under my direction and based on my published research ([email or web address]:/[email or web address]).pdf and?https://www.soard.org/article/[email or web address](07)17139-X/pdf) ?that a 10% preoperative weight loss improves long-term weight loss after surgery and reduces perioperative complications.? Insurance carriers such as [facility] have endorsed my recommendations ?and have included in their policies criteria to include a 10% preoperative weight loss requirement. PROCEDURE: Esophago-gastroscopy, laparoscopic repair of incarcerated diaphragmatic hernia, laparoscopic lysis of adhesions, laparoscopic sleeve gastrectomy and laparoscopic gastropexy INDICATIONS: This is a 36 year-old female who was electively scheduled for laparoscopic, possibly open sleeve gastrectomy revision. The patient has a previous sleeve gastrectomy at [facility] with Dr. Fink. Preoperative work-up including an UGI and EGD is suggestive of a very large proximal pouch of retained gastric fundus as well as incomplete distal antral resection. The objective of this operation is to redo the sleeve. The risks and complications of the procedure were discussed with the patient in advance, particularly the possibility of ; pulmonary embolism; staple line leak; bleeding; GERD; cardiac, pulmonary, or renal complications; as well as long-term problems such as insufficient weight loss, vitamin deficiency, strictures, or ulcers. The patient understood all the risks, and was in agreement to proceed with surgery. DESCRIPTION OF PROCEDURE: After informed consent was obtained from the patient, the patient was given preoperative antibiotics, and was transferred to the operating room. After successful induction of general anesthesia, pneumatic compression devices were placed on both lower extremities. An upper endoscopy was performed next. The oropharynx and esophagus appeared to be within normal limits. There was a diaphragmatic hernia present of moderate size consistent with the findings of the preoperative upper GI. The stomach was entered. Then after all fluid and air were suctioned and the stomach was fully decompressed, the scope was withdrawn and secured in the mid esophagus. The patient was then prepped and draped in the usual sterile manner, and abdominal access was established at the right upper quadrant with the Junaid technique. A 12 mm blunt port was inserted, and the abdomen was insufflated with CO2 to a pressure of 15 mmHg. Under direct visualization, additional ports were placed, specifically two 5 mm Versi-step ports to the left upper quadrant, and a 5 mm Versi-Step port to the right upper quadrant. 1% lidocaine plain was used to infiltrate all port sites as well as all fascia defects. There were adhesions in the abdomen from previous sleeve gastrectomy involving the left lobe of the liver, the omentum and the anterior abdominal wall. Those were lysed completely with the ultrasonic device. Following that, the patient was placed in a steep reverse Trendelenburg position. An additional 5 mm port was placed to the right flank for the Mediflex retractor that was used to retract the left lobe of the liver. The gastro-esophageal fat pad was opened with the ultrasonic device (Thunderbeat, Olympus) and the anterior esophagus and hiatus were exposed. The angle of His was opened with the ultrasonic device the fundus of the stomach from any diaphragmatic and splenic attachments. I then opened the gastrocolic ligament between the transverse colon and the greater curvature of the stomach with the ultrasonic device to enter the lesser sac. This was very difficult as there were dense adhesions from previous sleeve gastrectomy. The posterior gastric wall was attached to the pancreas and extensive and tedious dissection was required to free the stomach. The dissection continued all the way to the angle of His until the left rukhsana was completely dissected at its entirety. The previous surgeon did not dissect adequately posterior leaving short gastric vessels? which resulted in a much larger proximal stomach which was confirmed bt preoperative UGI and EGD. These posterior short gastric vessels were ligated as well as other posterior attachments that were not divided originally. This allowed us to mobilize the stomach completely and appreciate the amount of stomach that was inappropriately left unresected at the original operation.? Adhesiolysis took approximately 120 min to complete with a total operative time of 4 hours. There was also an obvious significant-sized hiatal hernia. I continued dissecting along the hiatus toward the left rukhsana and the angle of His. I fully mobilized the fat pad that was incarcerated in the hernia. I then continued by dissecting even further into the posterior retro-esophageal space all the way to the angle of His. I continued to mobilize the esophagus into the mediastinum circumferentially. Both vagal nerves were seen and preserved. At that point, I was able to have at least 3 to 5 cm of esophagus into the abdomen.? After I completely mobilized the esophagus from both the left and right rukhsana and I had a good mobilization of the esophagus circumferentially, I closed the hernia defect with three interrupted #0 Surgidac sutures using the Endo Stitch device, two of which was placed posterior and one of which anterior to the esophagus. ? The stomach was then divided transversely with one Endo AMELIE-60 purple load and one AMELIE-60 orange load using the AEON stapler and loads under direct endoscopic visualization before each of the two staple loads were fired.. Every effort was made that the gastric sleeve had a tubular shape and an even caliber throughout. An endoscopy was performed before the first fire to ensure that I did not narrow the gastro-esophageal junction. Once the sleeve resection was completed, the staple line of the gastric sleeve was reinforced with Hemoclips. The resected stomach was retrieved without difficulty from the Junaid port. A gastropexy was then performed in order to prevent postoperative GERD and partial gastric volvulus. Several interrupted 2.0 Surgidac sutures were placed between the sleeve's staple line and the previously divided greater omentum and gastro-colic ligament using the Endo-Stitch device. ?An upper endoscopy was performed. There was no narrowing at the GE junction. The scope was easily advanced all the way to the pylorus which was clearly visualized. There was no narrowing anywhere and the sleeve's caliber was even throughout. The sleeve's staple line was inspected and there was no evidence of ischemia, bleeding or dehiscence. At that point the gastroscope was withdrawn from the patient?s mouth while we were decompressing the bowel and the stomach from any remaining air. I looked into the lesser sac to see how the sleeve was situating and it was situating well. There was no bleeding from the staple line, spleen, or short gastric vessels. The Mediflex retractor was removed, and the undersurface of the liver was inspected and there was no bleeding. The patient was placed in supine position. I closed the fascial defect of the 12 mm port site with a figure of eight #1 Polysorb suture. Then 100 cc 0.25 % Marcaine plain with 10 mg of Dexamethasone were used to infiltrate the fascial closure as well as all skin incisions. 7 ml of Zynrelef was used at the Junaid port site. At this point, the abdomen was deflated, all ports were removed under direct vision, and no bleeding was noted from any of the port sites. The skin incisions were irrigated with saline and were closed with 4-0 absorbable monofilament sutures. Steri-Strips and OpSites were used to cover all incisions. The patient was extubated and was transferred in stable condition to the recovery room for further care. I was present and performed all munoz parts of the procedure. Mr. Acosta was the respiratory therapy assistant. There were no residents to assist with this case. Vince Christine MD, PhD, FACS Surgeon: Eyal Christine MD Surgeon: Eyal Christine MD Anesthesia: GETA, local and other (TAP block and 7ml Zynrelef) Was an Metal Bending Machine Operator used for this Procedure?: Yes Metal Bending Machine Operator: Antonio Acosta Estimated blood loss (mL): 10 IV fluids (mL): 3,000 Urine output (mL): 150 Pathology: other (Stomach) Condition: stable Disposition: PACU
--- NOTE | 2021-12-02 15:55 | P.PNGS_ITS ---
Subjective Subjective Date of Service: 12/03/21 Interval history: Patient has mild incisional pain, but was able to ambulate and use the incentive spirometer. She is tolerating phase 1 bariatric diet Physical Exam Vital Signs: Vital Signs: Last Vital Signs Temp 98.7 F 12/02/21 15:28 Pulse 82 12/02/21 15:28 Resp 18 12/02/21 15:28 BP 141/88 H 12/02/21 15:28 Pulse Ox 95 12/02/21 15:28 BMI result Body Mass Index 35.9 GI: Inspection: Yes normal to inspection, Yes incision (clean, dry and intact) and Yes obesity Extrem: Right lower extremity: normal to inspection (no calf tenderness) Left lower extremity: normal to inspection (no calf tenderness) Objective Data Active Medications Amphetamine/Dextroamphetamine (Dextroamphetamine/Amphetamine Xr 5 Mg Cap.Er.24h) 15 mg PO DAILY [facility] Famotidine (Famotidine/Pf 20 Mg/2 Ml Vial) 20 mg IVPUSH BID [facility] Hydromorphone HCl (Hydromorphone Hcl 0.5 Mg/0.5 Ml Syringe) 0.25 mg IVPUSH Q4H PRN; Protocol PRN Reason: Pain, Moderate (Pain Scale 4-6 Lactated Ringer's (Lr) 1,000 mls @ 100 mls/hr IVCONT .Q10H [facility] Last Admin: 12/02/21 12:59 Dose: 100 mls/hr Documented by: MARIE Acetaminophen (irmev) 1,000 mg in 100 mls @ 16.7 mls/hr IV .Q6H [facility] Metoclopramide HCl (Metoclopramide Hcl 10 Mg/2 Ml Vial) 10 mg IVPUSH Q6H PRN PRN Reason: Nausea Ondansetron HCl (Ondansetron Hcl 4 Mg/2 Ml Vial) 4 mg IVPUSH Q8H [facility] Last Admin: 12/02/21 13:02 Dose: 4 mg Documented by: MARIE Sodium Chloride (0.9 % Sodium Chloride Flush 3 Ml Syringe) 3 ml IVFLUSH QSHIFT [facility] Labs CBC & Chem 7: 12/03/21 06:07 12/03/21 06:07 Labs: Laboratory Results - last 24 hr 12/02/21 12/02/21 06:10 12:00 Anion Gap 14 Estim Creat Clear Calc 121.6 Estimated GFR > 60 Random Glucose 119 H Calcium 8.7 D Urine Test NEGATIVE Procedures Date of Service Date of Service: 12/03/21 Progress Note: A&P Assessment and plan (1) Status post sleeve gastrectomy: Status: Acute Assessment and Plan: s/p laparoscopic sleeve gastrectomy, lysis of adhesions repair of diaphragmatic hernia, and gastropexy Doing well Check am labs. If OK, will discharge home? (2) S/P repair of paraesophageal hernia: Status: Acute (3) Paraesophageal hernia: Status: Acute (4) Intra-abdominal adhesions: Status: Acute (5) Obesity: Status: Acute (6) BMI 36.0-36.9,adult: Status: Acute (7) GERD (gastroesophageal reflux disease): Status: Acute (8) EVA (obstructive sleep apnea): Status: Acute (9) HTN (hypertension): Status: Acute (10) Attention deficit hyperactivity disorder (ADHD), combined type: Status: Acute Time Spent With Patient Time: Total time spent is greater than 50% in coordination of care (as documented) at patient's floor/unit and/or counseling patient: Quality Stroke Does the patient have a stroke diagnosis?: No VTE Prior VTE?: No VTE Risk Level:: Surgical - moderate VTE Device Contraindication: N/A - Device Ordered VTE Drug Contraindication: Treatment Not Indicated
[2021-12-02] MEDS: 0.9 % Sodium Chloride Flush 3 ML SYRINGE IVFLUSH ×2 (16:29→21:20)
[2021-12-02] MEDS: Famotidine/PF 20 MG/2 ML VIAL IVPUSH (21:11)
[2021-12-03 03:22] VITALS: BP 144/79; PULSE 85; RESP 16; TEMP 37.6; O2SAT 96
[2021-12-03] MEDS: Lactated Ringers 1,000 ML 100 ML IVCONT (03:45)
[2021-12-03] MEDS: ondansetron HCL 4 MG/2 ML VIAL IVPUSH (03:49)
[2021-12-03 06:45] LABS: MANUAL DIFF FLAG NO
[2021-12-03 07:12] LABS: Anion Gap 14 (12-20); Blood Urea Nitrogen 7 mg/dL (9-16); Calcium 8.5 mg/dL (8.4-10.2); Carbon Dioxide 21 mmol/L (22-29); Chloride 107 mmol/L (96-108); Creatinine Clr Calc Pharmacy 143.1; Estimated Glomerular Filt Rate > 60; Glucose Random 84 mg/dL (60-115); Potassium 4.7 mmol/L (3.3-5.1); Sodium 137 mmol/L (135-145)
[2021-12-03 07:14] LABS: Basophils Percent Auto 0.2 % (0-2); Hemoglobin 12.1 g/dl (12.0-16.0); Imm Gran Abs Auto 0.07 X10*3/uL (0.00-0.03); Imm Gran Pct Auto 0.4 % (0.0-0.4); Lymphocytes Absolute Auto 1.4 X10*3/uL (1.2-4.9); Lymphocytes Percent Auto 8.4 % (20-40); Mean Corpuscular HGB Conc 32.7 g/dl (31.0-35.0); Mean Corpuscular Hemoglobin 29.1 pg (27.0-33.0); Mean Corpuscular Volume 88.9 fL (80.0-98.0); Mean Platelet Volume 10.8 fL (9.4-12.3); Monocytes Absolute Auto 1.1 X10*3/uL (0.1-1.2); Monocytes Percent Auto 6.3 % (2-11); Neutrophils Absolute Auto 14.3 x10*3/uL (2.0-8.3); Neutrophils Percent Auto 84.7 % (45-73); Platelet Count 342 X10*3/uL (160-400); Red Blood Count 4.16 X10*6/uL (4.20-5.50); Red Cell Distribution Width 13.1 % (11.0-16.0); White Blood Count 16.9 X10*3/uL (4.8-10.8)
[2021-12-03 08:00] VITALS: BP 146/80; PULSE 89; RESP 18; TEMP 37.3; O2SAT 98
--- NOTE | 2021-12-03 09:25 | MHC.CM.PN ---
EMR REVIEWED, PT S/P LAP SLEEVE GASTRECTOMY, CM MET W/PT WHO REPORTS SHE LIVES W/HER AND 3 CHILDREN, PT REPORTS SHE IS INDEP W/ALL CARE, DENIES USE OF DME AND CURRENTLY WORKS, PT VERIFIES PCP QI OLIVA, ZACKARY X3, PT REPORTS HER NICHOLAS LANDAVERDE [phone] IS HER HCP, COPY HAS BEEN REQUESTED. D/C HOME TODAY BY NOON, FAMILY FOR TRANSPORT
[2021-12-03] MEDS: Famotidine/PF 20 MG/2 ML VIAL IVPUSH (09:32)
[2021-12-03] MEDS: 0.9 % Sodium Chloride Flush 3 ML SYRINGE IVFLUSH (09:32)
--- NOTE | 2021-12-03 09:46 | HO.POSTANES ---
Post Anesthesia Evaluation Post Anesthesia Evaluation Vital Signs: Vital Signs Temp Pulse Resp BP Pulse Ox 12/03/21 08:00 99.1 F 89 18 146/80 H 98 12/03/21 03:22 99.7 F 85 16 144/79 H 96 12/02/21 23:19 99.4 F 73 16 125/73 97 Anesthesia: General Endotracheal-GETA Mental Status: Awake Pain Control: Satisfactory Nausea/Vomiting: None Hydration: Adequate Anesthesia-Related Issues: No Anes. Related Issues
== END 2021-12-03 11:30 | disposition home or self-care (01) | DRG 403 ==
LOC: HO.SSSA 11:20 → HO.S3 12:04
PROVIDERS: Nurse Practitioner; Physician Assistant Surgical; Admitting Provider Surgery; PCP Internal Medicine; Visit Provider Surgery
PROC: 0DB64Z3 Excision of Stomach, Percutaneous Endoscopic Approach, Vertical (ICD-10-PCS; CPT 43845; principal; 2021-12-02 07:30)
DX: E66.01 Morbid (severe) obesity due to excess calories (principal); K44.0 Diaphragmatic hernia with obstruction, without gangrene; F90.9 Attention-deficit hyperactivity disorder, unspecified type; F32.A Depression, unspecified; Z20.822 Contact with and (suspected) exposure to COVID-19; K66.0 Peritoneal adhesions (postprocedural) (postinfection); Z86.16 Personal history of COVID-19; Z79.899 Other long term (current) drug therapy
CPT/HCPCS: 36415; 80048; 80053; 80061; 81025; 83036; 83525; 84443; 85014; 85018; 85025; 85610; 85730; 86140; 86850; 86900; 86901; 87635; 88307; 88342; 99024; A4649; C9088; J0131; J0690; J1100; J1170; J2250; J2405; J2550; J3010

== ENCOUNTER → 2021-12-08 14:34 | Outpatient (BNVA) | payer OTHER, SELFPAY | PROVIDERS: PCP Internal Medicine; Visit Provider Surgery | DX: Z13.89 Encounter for screening for other disorder (principal) ==

== ENCOUNTER → 2021-12-31 14:29 | Outpatient (BNVA) | payer OTHER, SELFPAY | PROVIDERS: PCP Internal Medicine; Visit Provider Dietitian, Registered | DX: E66.9 Obesity, unspecified (principal); Z68.33 Body mass index [BMI] 33.0-33.9, adult | CPT/HCPCS: 97803 ==

== ENCOUNTER → 2022-01-14 15:15 | Outpatient (BNVA) | payer OTHER, SELFPAY | PROVIDERS: PCP Internal Medicine; Referring Provider Surgery; Visit Provider Dietitian, Registered | DX: E66.9 Obesity, unspecified (principal); Z68.33 Body mass index [BMI] 33.0-33.9, adult; Z98.84 Bariatric surgery status; Z71.3 Dietary counseling and surveillance | CPT/HCPCS: 97803 ==

== ENCOUNTER → 2022-06-28 13:53 | Outpatient (BNVA) | payer OTHER, SELFPAY | PROVIDERS: PCP Internal Medicine; Visit Provider Dietitian, Registered | DX: E66.9 Obesity, unspecified (principal); Z68.31 Body mass index [BMI] 31.0-31.9, adult; Z98.84 Bariatric surgery status; Z71.3 Dietary counseling and surveillance | CPT/HCPCS: 97803 ==

== ENCOUNTER → 2022-07-06 14:30 | Outpatient (BNVA) | payer OTHER, SELFPAY | PROVIDERS: PCP Internal Medicine; Referring Provider Internal Medicine; Visit Provider Physician Assistant Surgical | DX: E66.9 Obesity, unspecified (principal); Z90.3 Acquired absence of stomach [part of]; Z98.890 Other specified postprocedural states; Z87.19 Personal history of other diseases of the digestive system; Z68.31 Body mass index [BMI] 31.0-31.9, adult | CPT/HCPCS: 99212 ==

== ENCOUNTER 2022-07-22 09:11 | Outpatient (REF) | payer OTHER, SELFPAY ==
[2022-07-22 09:32] LABS: MANUAL DIFF FLAG NO
[2022-07-22 09:37] LABS: Basophils Absolute Auto 0.1 X10*3/uL (0.0-0.2); Basophils Percent Auto 0.7 % (0-2); Eosinophils Absolute Auto 0.1 X10*3/uL (0.0-0.4); Eosinophils Percent Auto 1.4 % (0-4); Hematocrit 42.5 % (37.0-47.0); Hemoglobin 14.3 g/dl (12.0-16.0); Imm Gran Abs Auto 0.03 X10*3/uL (0.00-0.03); Imm Gran Pct Auto 0.3 % (0.0-0.4); Lymphocytes Absolute Auto 1.8 X10*3/uL (1.2-4.9); Lymphocytes Percent Auto 20.7 % (20-40); Mean Corpuscular HGB Conc 33.6 g/dl (31.0-35.0); Mean Corpuscular Hemoglobin 29.9 pg (27.0-33.0); Mean Corpuscular Volume 88.7 fL (80.0-98.0); Mean Platelet Volume 10.2 fL (9.4-12.3); Monocytes Absolute Auto 0.5 X10*3/uL (0.1-1.2); Monocytes Percent Auto 5.9 % (2-11); Neutrophils Absolute Auto 6.3 x10*3/uL (2.0-8.3); Platelet Count 304 X10*3/uL (160-400); Red Blood Count 4.79 X10*6/uL (4.20-5.50); Red Cell Distribution Width 12.8 % (11.0-16.0); White Blood Count 8.8 X10*3/uL (4.8-10.8)
[2022-07-22 10:27] LABS: Estimated Average Glucose 80 mg/dL; Hemoglobin A1c % 4.4 %
[2022-07-22 10:49] LABS: Alanine Aminotransferase 9 U/L (0-31); Albumin Level 4.6 g/dL (3.5-5.0); Alkaline Phosphatase 70 U/L (39-117); Anion Gap 14 (12-20); Aspartate Amino Transferase 14 U/L (5-31); Bilirubin Total 0.8 mg/dL (0.0-1.0); Blood Urea Nitrogen 17 mg/dL (9-16); C Reactive Protein 0.17 mg/dL (< or = 0.50); Calcium 9.5 mg/dL (8.4-10.2); Carbon Dioxide 22 mmol/L (22-29); Chloride 107 mmol/L (96-108); Cholesterol 168 mg/dL; Estimated Glomerular Filt Rate > 60; Glucose Random 90 mg/dL (60-115); HDL Cholesterol 44 mg/dL; Iron 129 mcg/dL (30-160); LDL Cholesterol Calculated 92 mg/dl; Percent Iron Saturation 42 % (15-50); Potassium 4.1 mmol/L (3.3-5.1); Sodium 139 mmol/L (135-145); Total Iron Binding Capacity 309 mcg/dL (228-428); Total Protein 7.2 g/dL (6.5-8.0); Triglycerides 163 mg/dL; Unsaturated Iron Binding 180 ug/dL
[2022-07-22 11:10] LABS: Ferritin 69 ng/mL (10-122); Insulin 6 uU/mL (2-29); TSH reflex Free T4 1.51 uIU/mL (0.32-4.0); Vitamin D 25-OH Total 46.5 ng/mL (>30)
[2022-07-22 11:22] LABS: Folate 10.6 ng/mL (> or = 4.0); Vitamin B12 856 pg/mL (200-900)
[2022-07-23 17:18] LABS: Calcium (PTHI) 9.4 mg/dL (8.6-10.2); PTHI 42 pg/mL (16-77)
[2022-07-27 12:28] LABS: Zinc 62 mcg/dL (60-130)
[2022-07-27 16:48] LABS: Vitamin B1 9 nmol/L (8-30)
[2022-07-28 10:24] LABS: Vitamin A 60 mcg/dL (38-98)
== END 2022-07-22 09:12 | disposition home or self-care (01) ==
LOC: HO.LAB 09:11
PROVIDERS: PCP Internal Medicine; Visit Provider Physician Assistant Surgical
DX: Z90.3 Acquired absence of stomach [part of] (principal)
CPT/HCPCS: 36415; 80053; 80061; 82306; 82607; 82728; 82746; 83036; 83525; 83540; 83970; 84425; 84443; 84590; 84630; 85025; 86140

== ENCOUNTER → 2022-07-29 13:40 | Outpatient (BNVA) | payer OTHER, SELFPAY | PROVIDERS: PCP Internal Medicine; Visit Provider Dietitian, Registered | DX: E66.9 Obesity, unspecified (principal); Z68.31 Body mass index [BMI] 31.0-31.9, adult; Z71.3 Dietary counseling and surveillance | CPT/HCPCS: 97803 ==

== ENCOUNTER → 2022-08-05 08:27 | Outpatient (BNVA) | payer OTHER, SELFPAY | PROVIDERS: PCP Internal Medicine; Visit Provider Physician Assistant Surgical | DX: Z13.89 Encounter for screening for other disorder (principal) ==

== ENCOUNTER → 2022-08-19 08:33 | Outpatient (BNVA) | payer OTHER, SELFPAY | PROVIDERS: PCP Internal Medicine; Visit Provider Physician Assistant Surgical | DX: Z13.89 Encounter for screening for other disorder (principal) ==

== ENCOUNTER → 2022-09-16 08:37 | Outpatient (BNVA) | payer OTHER, SELFPAY | PROVIDERS: PCP Internal Medicine; Visit Provider Physician Assistant Surgical | DX: Z13.89 Encounter for screening for other disorder (principal) ==

== ENCOUNTER → 2022-10-01 13:12 | Outpatient (BNVA) | payer OTHER, SELFPAY | PROVIDERS: PCP Internal Medicine; Visit Provider Dietitian, Registered | DX: E66.3 Overweight (principal); Z68.29 Body mass index [BMI] 29.0-29.9, adult | CPT/HCPCS: 97803 ==

== ENCOUNTER → 2022-10-14 08:41 | Outpatient (BNVA) | payer OTHER, SELFPAY | PROVIDERS: PCP Internal Medicine; Referring Provider Internal Medicine; Visit Provider Physician Assistant Surgical ==

== ENCOUNTER → 2022-11-25 11:32 | Outpatient (BNVA) | payer OTHER, SELFPAY | PROVIDERS: PCP Internal Medicine; Visit Provider Physician Assistant Surgical | DX: E66.3 Overweight (principal); Z90.3 Acquired absence of stomach [part of]; Z98.890 Other specified postprocedural states; Z87.19 Personal history of other diseases of the digestive system; Z68.28 Body mass index [BMI] 28.0-28.9, adult | CPT/HCPCS: 99212 ==

== ENCOUNTER 2023-06-01 13:06 | Outpatient (AMB) | payer OTHER, SELFPAY ==
--- NOTE | 2023-06-01 13:07 | A.OFFVIS_ITS ---
Intake VS Expanded 06/01/23 13:19 BP 142/79 H Blood Pressure Location Rt brachial Blood Pressure Position Sitting Pulse 99 Pulse Source Pulse Oximeter Temp 97.7 F Temperature Source Temporal Artery Scan Pulse Oximetry 100 Oxygen Delivery Method Room Air Height 5 ft 7 in Weight 185 lb 3.2 oz BMI 29.0 Body Fat % 34.2 Body Fat Mass 63.2 Fat Free Mass 122.0 Visceral Fat Rating 6.0 Body Water % 47.1 Body Water Mass 87.4 Muscle Mass/Score 115.8 Basal Metabolic Rate/Score 1,665 Intake Visit Reasons: (OV) PO LSG 12/02/21 Allergies No Known Allergies Allergy (Verified 06/01/23 13:14) HPI HPI Comments History of Present Illness Details This?a?38?yo female who is s/p revision of LSG with hiatal hernia repair on?12/02/2021. Presents for 18 month post op visit. Weight today is 185.2 pounds, with a BMI of 29. There has been a 70.6 pound weight loss,(initial weight 255.8 pounds) since starting the program on 09/16/2021 reflecting a 27.5% total body weight loss and a weight loss of 43.1 pounds since surgery (operative weight 228.3 pounds) reflecting a 18.8% TBWL since surgery. No complaints of nausea, emesis, abdominal pain or reflux. Reports infrequent but normal bowel movements every [] days and uses stool softeners regularly. She was last seen for her 1 year follow-up in November. She has not yet gotten her 1 year follow-up labs and has been reminded to get these labs done. She states that she injured her back at requiring about 2 months of recovery. This was from February through end of March 2023. She has now recovered and is back at the gym. She has also been having complaints of excess skin to her arms and abdomen. Notices it when running- rubs against her body. Has to wear long sleeves to protect. Causes discomfort when she is working out and lifting weights, unable to exercise to full potential due to excess skin getting in the way. Also notices itching of skin fold of abdomen- moisture collects here, especially when she works out. She states that she has been applying an antiperspirant deodorant to the skin fold underneath her abdomen to help prevent moisture buildup. She additionally has noticed increased odor and redness to her umbilicus intermittently. She has applied the prescriptive clotrimazole to the rashes that she gets intermittently to her abdomen and upper arms bilaterally. She has found that the prescriptive clotrimazole is affective however the rash is do recur. States her goal is to be healthy and possibly lose more weight. Present meal plan includes: wakes 5 am bed at 10 pm, dinner 7 pm Celebrate 4 in 1 shake 2 scoops in 10-12 oz almond milk, 7-9 white rice and chicken tiki masala quest protein crackers and tuna lazy man stuffed pepper or lasagna w turkey and protein noodles. not measuring food by fork snacking on pirate booty, armenian cake roll, chips drinking 44-66 oz water ? Exercise routine includes: HIIT class 5 days per week cardio/strenght core x 1 day running 20-30 min 2-3 days Any post op complications: none EVA: never DM: never HTN: never Hyperlipidemia: never GERD:?0-5 scale ??0 = no symptoms ??1 = symptoms noticeable but not bothersome 2 =symptoms bothersome but not daily ? 3 = symptoms bothersome and daily 4 = symptoms affect daily activities 5 = symptoms are incapacitating, unable to do daily activities ? How bad is the heartburn: 0 ? Heartburn while lying down: 0 ? Heartburn when standing up: 0 ? Heartburn after meals: 0 ? Does heartburn change your diet: 0 ? Does heartburn wake you up from sleep: 0 ? Do you have difficulty swallowin ? Do you have pain with swallowin ? If you take medicine for your reflux, does this affect your daily life: 0 Satisfaction with present condition - satisfied or not satisfied: satisfied [facility] Medical History (Updated 06/01/23 @ 13:52 by GISELA Storey) COVID-19 vaccine series completed hemorrhage Depression Attention deficit disorder (ADD) Seasonal allergies COVID-19 Surgical History S/P repair of paraesophageal hernia Status post sleeve gastrectomy History of sleeve gastrectomy Hx of cholecystectomy History of back surgery Family History Mother No problems noted. Father Cancer Sister Diabetes Hypertension Sleep apnea Brother No problems noted. Sister No problems noted. Daughter No problems noted. Daughter No problems noted. Son No problems noted. Social History Household Members: Significant Other and Family Housing: House Are you a primary pharmacy care coordinator to a significant other at home: No Do you presently have visiting nurse or other home services: No Alcohol intake: current Alcohol intake frequency: holidays/special occasions only Patient Tobacco Use Status: Former Tobacco user Quit Date: 10/27/21 Tobacco use type: Cigarette Cigarettes Per Day: 2 service: No Current occupational status: employed Physical Exam Const General: healthy appearing and no acute distress Resp Effort & Inspection: normal respiratory effort Auscultation: clear to auscultation bilaterally Cardio Rate: regular rate Rhythm: regular rhythm GI Auscultation: normal bowel sounds Skin Other: Grade 1/2 pannus with excess skin of the upper extremities, no current rash. Extrem General: Yes normal to inspection Assessment & Plan Assessment & Plan (1) Overweight: Code(s): E66.3 - Overweight Plan: At this time, patient is going to restructure her meal plan to be more consistent and regimented. She likes celebrate rebuild or or gain protein powder. 07:00 to 09:00 shake 1.5 scoops with 10 oz unsweetened almond milk or water. 11:00 to 13:00 zone perfect bar 15:00 to 17:00 another shake 19:00 meal with 7 forks protein and 7 forks salad or vegetables May have half cup fresh berries or apple daily. Encouraged to track calories with exercising and a goal of 2000 or more per week. Reminded to get her labs done. Return to clinic in 3 weeks. (2) Excess skin: Code(s): L98.7 - Excessive and redundant skin and subcutaneous tissue Plan: Patient does have excess skin of the arms bilaterally and abdomen. She has been encouraged to continue to monitor for any recurrence of rashes in apply clotrimazole as directed. We will continue to monitor closely. She is clearly in need of medically necessary excess skin removal however we discussed the need for improved healthy weight and consistency. She is in agreement with this plan, we will continue to monitor this aggressively and consistently. Coding Level of Care Code Est Pt Level 4 (01165) Diagnoses Overweight E66.3 Excess skin L98.7
[2023-06-01 13:19] VITALS: BP 142/79; PULSE 99; TEMP 36.5; O2SAT 100; BMI 29.0
== END 2023-06-01 13:58 | disposition home or self-care (01) ==
PROVIDERS: PCP Internal Medicine; Visit Provider Physician Assistant Surgical
DX: L98.7 Excessive and redundant skin and subcutaneous tissue (principal); E66.3 Overweight; Z68.29 Body mass index [BMI] 29.0-29.9, adult; Z90.3 Acquired absence of stomach [part of]; Z98.84 Bariatric surgery status
CPT/HCPCS: 99214

== ENCOUNTER → 2023-06-01 13:06 | Outpatient (BNVA) | payer OTHER, SELFPAY | PROVIDERS: PCP Internal Medicine; Visit Provider Physician Assistant Surgical | DX: E66.3 Overweight (principal); L98.7 Excessive and redundant skin and subcutaneous tissue; Z68.29 Body mass index [BMI] 29.0-29.9, adult; Z90.49 Acquired absence of other specified parts of digestive tract; Z90.3 Acquired absence of stomach [part of] | CPT/HCPCS: 99212 ==

== ENCOUNTER 2023-06-14 14:22 | Outpatient (REF) | payer OTHER, SELFPAY ==
[2023-06-14 14:39] LABS: MANUAL DIFF FLAG NO
[2023-06-14 14:48] LABS: Basophils Absolute Auto 0.1 X10*3/uL (0.0-0.2); Basophils Percent Auto 0.8 % (0-2); Eosinophils Absolute Auto 0.2 X10*3/uL (0.0-0.4); Eosinophils Percent Auto 2.2 % (0-4); Hematocrit 40.7 % (37.0-47.0); Hemoglobin 13.7 g/dl (12.0-16.0); Imm Gran Abs Auto 0.03 X10*3/uL (0.00-0.03); Imm Gran Pct Auto 0.3 % (0.0-0.4); Lymphocytes Absolute Auto 2.6 X10*3/uL (1.2-4.9); Mean Corpuscular HGB Conc 33.7 g/dl (31.0-35.0); Mean Corpuscular Hemoglobin 30.4 pg (27.0-33.0); Mean Corpuscular Volume 90.4 fL (80.0-98.0); Mean Platelet Volume 10.3 fL (9.4-12.3); Monocytes Absolute Auto 0.5 X10*3/uL (0.1-1.2); Monocytes Percent Auto 5.2 % (2-11); Neutrophils Absolute Auto 6.9 x10*3/uL (2.0-8.3); Neutrophils Percent Auto 66.5 % (45-73); Platelet Count 254 X10*3/uL (160-400); Red Cell Distribution Width 11.9 % (11.0-16.0); White Blood Count 10.4 X10*3/uL (4.8-10.8)
[2023-06-14 15:03] LABS: Estimated Average Glucose 80 mg/dL; Hemoglobin A1c % 4.4 % (<6.0)
[2023-06-14 15:25] LABS: Alanine Aminotransferase 11 U/L (0-31); Albumin Level 4.4 g/dL (3.5-5.0); Alkaline Phosphatase 66 U/L (39-117); Anion Gap 13 (12-20); Aspartate Amino Transferase 20 U/L (5-31); Bilirubin Total 0.8 mg/dL (0.0-1.0); Blood Urea Nitrogen 11 mg/dL (9-16); C Reactive Protein < 0.10 mg/dL (< or = 0.50); Carbon Dioxide 23 mmol/L (22-29); Chloride 106 mmol/L (96-108); Cholesterol 171 mg/dL (<200); Estimated Glomerular Filt Rate > 60; Glucose Random 79 mg/dL (60-115); HDL Cholesterol 50 mg/dL (>40); Iron 151 mcg/dL (30-160); LDL Cholesterol Calculated 87 mg/dL (<100); Percent Iron Saturation 52 % (15-50); Potassium 3.9 mmol/L (3.3-5.1); Sodium 138 mmol/L (135-145); Total Iron Binding Capacity 289 mcg/dL (228-428); Total Protein 7.4 g/dL (6.5-8.0); Triglycerides 171 mg/dL (<150); Unsaturated Iron Binding 138 ug/dL
[2023-06-14 15:42] LABS: Ferritin 57 ng/mL (10-122); Insulin 3 uU/mL (2-29); TSH reflex Free T4 1.55 uIU/mL (0.32-4.0); Vitamin D 25-OH Total 34.2 ng/mL (>30)
[2023-06-14 15:45] LABS: Folate 9.3 ng/mL (> or = 4.0); Vitamin B12 992 pg/mL (200-900)
[2023-06-17 10:07] LABS: Vitamin B1 7 nmol/L (8-30)
[2023-06-18 01:58] LABS: Zinc 70 mcg/dL (60-130)
[2023-06-18 22:39] LABS: Vitamin A 49 mcg/dL (38-98)
== END 2023-06-14 14:23 | disposition home or self-care (01) ==
LOC: HO.LAB 14:22
PROVIDERS: PCP Internal Medicine; Visit Provider Physician Assistant Surgical
DX: Z90.3 Acquired absence of stomach [part of] (principal)
CPT/HCPCS: 36415; 80053; 80061; 82306; 82607; 82728; 82746; 83036; 83525; 83540; 84425; 84443; 84590; 84630; 85025; 86140

== ENCOUNTER 2023-06-21 09:16 | Outpatient (AMB) | payer OTHER, SELFPAY ==
--- NOTE | 2023-06-21 08:55 | A.OFFVIS_ITS ---
Intake VS Expanded 06/21/23 08:56 Height 5 ft 7 in Weight 187 lb 3.2 oz BMI 29.3 Body Fat % 41.8 Body Fat Mass 78.2 Fat Free Mass 109.1 Visceral Fat Rating 9.3 Body Water % 43.1 Body Water Mass 80.6 Muscle Mass/Score 102.1 Basal Metabolic Rate/Score 1,548 Intake Visit Reasons: (TV) PO LSG 12/02/21 Allergies No Known Allergies Allergy (Verified 06/01/23 13:14) HPI HPI Comments History of Present Illness Details This?a?38?yo female who is s/p revision of LSG with hiatal hernia repair on?12/02/2021. Presents for 19 month post op visit. Weight today is 187.2 pounds, with a BMI of 29.4. There has been a 68.6 pound weight loss,(initial weight 255.8 pounds) since starting the program on 09/16/2021 reflecting a 27.2% total body weight loss and a weight loss of 41.1 pounds since surgery (operative weight 228.3 pounds) reflecting a 18.5% TBWL since surgery. No complaints of nausea, emesis, abdominal pain or reflux. 1 year post op labs reveal low B1 She states she has been following the meal plan except for last tuesday when she had multiple meals out. Bariatric MVI 4 of 7 days She has also been having complaints of excess skin to her arms and abdomen. Notices it when running- rubs against her body. Has to wear long sleeves to protect. Causes discomfort when she is working out and lifting weights, unable to exercise to full potential due to excess skin getting in the way. Also noti omkar itching of skin fold of abdomen- moisture collects here, especially when she works out. She states that she has been applying an antiperspirant deodorant to the skin fold underneath her abdomen to help prevent moisture buildup. She additionally has noticed increased odor and redness to her umbilicus intermittently. She has applied the prescriptive clotrimazole to the rashes that she gets intermittently to her abdomen and upper arms bilaterally. She has found that the prescriptive clotrimazole is affective however the rashs do recur. Meal plan: 07:00 to 09:00 shake 1.5 scoops with 10 oz unsweetened almond milk or water. 11:00 to 13:00 zone perfect bar 15:00 to 17:00 another shake 19:00 meal with 7 forks protein and 7 fo rks salad or vegetables May have half cup fresh berries or apple daily. Drinking 50-64 oz water Exercising M,W,F weight training circuit training and then 1/2 hour bike (200-250 lynn) T,Th cardio circuit training (200 lynn) [facility] Medical History (Updated 06/01/23 @ 13:52 by GISELA Storey) COVID-19 vaccine series completed hemorrhage Depression Attention deficit disorder (ADD) Seasonal allergies COVID-19 Surgical History S/P repair of paraesophageal hernia Status post sleeve gastrectomy History of sleeve gastrectomy Hx of cholecystectomy History of back surgery Family History Mother No problems noted. Father Cancer Sister Diabetes Hypertension Sleep apnea Brother No problems noted. Sister No problems noted. Daughter No problems noted. Daughter No problems noted. Son No problems noted. Social History Household Members: Significant Other and Family Housing: House Are you a primary lead care manager to a significant other at home: No Do you presently have visiting nurse or other home services: No Alcohol intake: current Alcohol intake frequency: holidays/special occasions only Patient Tobacco Use Status: Former Tobacco user Quit Date: 10/27/21 Tobacco use type: Cigarette Cigarettes Per Day: 2 service: No Current occupational status: employed Assessment & Plan Assessment & Plan (1) Overweight: Code(s): E66.3 - Overweight Plan: Change meal plans slightly: 07:00 to 09:00 shake 1 scoop with 10 oz unsweetened almond milk or water. 11:00 to 13:00 zone perfect bar 15:00 to 17:00 another shake 19:00 meal with 7 forks protein and 7 forks salad or vegetables May have half cup fresh berries or apple daily Encouraged to be consistent with her bariatric multivitamin given slightly low thiamin. Encouraged to increase calories burn to the gym to achieve a goal of 2000 per week. Return to clinic in 3-4 weeks. (2) Excess skin: Code(s): L98.7 - Excessive and redundant skin and subcutaneous tissue Plan: Patient continues to apply techniques as listed above including powder, deodorant, clotrimazole as needed for recurrent rash. We discussed the need for achieving a healthy weight as well as maintaining that healthy weight in order to submit to her insurance company for what is felt to be a medically necessary skin removal surgery. She is in agreement with that plan we will continue to strive to do so. Telehealth Telehealth Location of provider rendering services: practice address Location of patient: address on file Patient Identification confirmed using: Name, : Yes Telehealth method: voice only Patient verbally consented to treatment: Yes Patient verbally consented to billing insurance company: Yes Patient informed of any privacy concerns related to visit: Yes Minutes spent on Phone/Video with Pt.: 16 Coding Level of Care Code Tele Est Pt Level 3 (21809) Diagnoses Overweight E66.3 Excess skin L98.7 Time Spent (min) 20
[2023-06-21 08:56] VITALS: BMI 29.3
== END 2023-06-21 09:18 | disposition home or self-care (01) ==
LOC: HO.HBS 09:16
PROVIDERS: PCP Internal Medicine; Visit Provider Physician Assistant Surgical
DX: E66.3 Overweight (principal); L98.7 Excessive and redundant skin and subcutaneous tissue
CPT/HCPCS: 99213

== ENCOUNTER → 2023-06-21 09:16 | Outpatient (BNVA) | payer OTHER, SELFPAY | PROVIDERS: PCP Internal Medicine; Visit Provider Physician Assistant Surgical ==